=== PATIENT | female | born 1965 | race Caucasian/White ===

== ENCOUNTER → 2023-02-18 08:01 | Outpatient (REF) | payer OTHER, SELFPAY ==
--- NOTE | 2023-02-18 08:14 | CA_ITS ---
Transthoracic Echocardiogram Patient (Last, First, Middle): Tenisha Barone M Gender: Female Date of : 1965 Age: 57 Procedure Date: 02/18/2023 Procedure Type: Transthoracic Echocardiogram Location: [facility] Height: 162.56 cm Weight: 53.07 kg BSA: 1.56 m2 Heart Rate: 58 bpm BP: 105 / 70 mmHg Medical Collections Specialist: TOSHIA Referring MD: Virgilio Cary Symptoms: R07.9 CHEST PAIN Study Quality: Adequate ECG Rhythm: Bradycardia Conclusions: - The left ventricular systolic function is normal. The calculated ejection fraction is 69% by biplane method. - No obvious valvular pathology seen on this study. Findings Left Ventricle Normal left ventricular cavity size. There is normal left ventricular wall thickness. The left ventricular systolic function is normal. The calculated ejection fraction is 69% by biplane method. There is no evidence of regional wall motion abnormalities. Diastolic function is normal for age. LV peak GLS -23.9%. Right Ventricle Normal right ventricular cavity size and systolic function. Atria Both atria are normal in size. There is a prominent eustachian valve. Possible eustachian valve (normal variant). Aortic Valve The aortic valve was not well visualized. There is no aortic valve stenosis. There is no aortic valve regurgitation. Mitral Valve The mitral valve appears normal. There is no mitral valve regurgitation. There is no mitral valve stenosis. Pulmonic Valve The pulmonic valve is likely normal. Tricuspid Valve Normal tricuspid valve structure. There is mild tricuspid valve regurgitation. There is no evidence of pulmonary hypertension. Great Vessels The asc aorta is normal in size. Venous The inferior vena cava is normal in size and collapses greater than 50% with inspiration. Pericardium/Pleural There is no evidence of pericardial effusion. Prior Study Comparison No prior study available for comparison. Recommendations, Care & Conclusions No obvious valvular pathology seen on this study. Measurements 2D Linear Measurements IVSd: 0.69 0.6-0.9/0.6-1.0 cm LVIDd: 4.16 3.9-5.3/4.2-5.9 cm LVIDd Index: 2.67 2.4-3.2/2.2-3.1 cm/m2 LVIDs: 2.30 2.0-3.6 cm LVPWd: 0.84 0.7-1.1 cm LA Diam: 2.90 2.7-3.8/3.0-4.0 cm LAIDs Index: 1.86 1.5-2.3 cm/m2 LV Mass: 116.31 67-162/88-224 g LV Mass Index: 74.56 43-95/49-115 g/m2 LVOT Diam: 1.70 3.0+(-)1.3 cm 2D Systolic Function EF 4C: 69.40 >55% EF 2C: 68.20 >55% EF BiP: 68.90 >55% Mitral Valve MV Pk E: 0.87 MV PK A: 0.82 MV Decel Time: 269.00 E/A: 1.10 E'Lateral: 12.20 E'Medial: 9.36 E/E' Med: 9.20 E/E' Lat: 7.10 PHT: 79.00 MVA PHT: 2.78 Decel Divide: 3.21 Aortic Valve AoV Pk Onur: 1.33 AoV Mn Onur: 0.89 AoV VTI: 0.32 AoV Pk Grad: 7.00 Aov Mn Grad: 4.00 PENNY Cont.VTI: 1.72 LVOT LVOT Pk Onur: 1.01 LVOT Mn Onur: 0.68 LVOT VTI: 0.24 LVOT Pk Grad: 4.00 LVOT Mn Grad: 2.00 LVOT Diam: 1.70 LVOT Area: 2.27 Diastolic Function MV Pk E: 0.87 MV Pk A: 0.82 E/A: 1.10 E'Medial: 9.36 E/E' Med: 9.20 E' Laterial: 12.20 E/E' Lat: 7.10 Right Ventricle TAPSE (mm): 25.40 TVS' Onur: 11.10 Tricuspid Valve TR Pk Onur: 2.04 TR Pk Grad: 17.00 RA Press: 3.00 RVSP: 20.00 Great Vessels Aorta Sinus of Valsalva: 3.30 2.0-3.5 cm Ao Asc: 3.50 2.1-3.4 cm Pulmonary Valve PV Pk Onur: 0.75 Peak PV Grad: 2.00 Updated in Other Vendor System with Status of Final Raúl Carey MD electronically signed on 02/18/2023 1:13:45 PM with status of Final
== END ==
LOC: HO.CARD 08:01
PROVIDERS: PCP Family Medicine; Visit Provider Internal Medicine
DX: R07.9 Chest pain, unspecified (principal)
CPT/HCPCS: 93306; 93356